=== PATIENT | female | born 1985 | race Caucasian/White ===

== ENCOUNTER → 2019-08-12 11:33 | Outpatient (CLI) | payer OTHER, MEDICAID, SELFPAY | PROVIDERS: Visit Provider Obstetrics & Gynecology | DX: N81.9 Female genital prolapse, unspecified (principal); R32 Unspecified urinary incontinence | CPT/HCPCS: 87086 ==

== ENCOUNTER → 2019-12-13 10:45 | Outpatient (CLI) | payer OTHER, MEDICAID, SELFPAY ==
[2019-12-14 09:18] LABS: COVID19 Sendout Not Detected (Not Detect)
== END ==
PROVIDERS: Visit Provider Physician Assistant
DX: Z01.812 Encounter for preprocedural laboratory examination (principal)
CPT/HCPCS: 87635

== ENCOUNTER 2019-12-16 06:40 | Day surgery (SDC) | payer OTHER, MEDICAID, SELFPAY ==
[2019-12-11 07:43] VITALS: BMI 43.4
[2019-12-16] VITALS (17 sets, daily range): BP systolic 103–131; BP diastolic 52–70; PULSE 64–80; RESP 12–22; TEMP 36.7–37.4; O2SAT 94–99; BMI 44.0
--- NOTE | 2019-12-16 | PATH_ITS ---
[facility] Accession Number: [id number] . 01 Material submitted: . uterus - UTERUS AND CERVIX . 02 Diagnosis: Uterus and Cervix, Hysterectomy: Proliferative endometrium with no diagnostic abnormality. Myometrium with no diagnostic abnormality. Cervix with nabothian cyst and no other diagnostic alteration. No evidence of neoplasm. [facility] 12/18/2019 1113 Local . 02 Electronically signed: . Javier Patterson MD, PhD, Pathologist NPI- [id number] . 01 Gross description: . Specimen A is received in formalin, labeled with patient identification and uterus and cervix. It consists of a 180-gram unoriented uterine corpus with a detached cervix. The uterine corpus is 4.5 cm from superior to inferior, 6.0 cm from cornu to cornu, and 5.4 cm from anterior to posterior. The serosa is pink to yellow-schrader and dull. Opening the specimen reveals pink to yellow-schrader smooth and glistening endometrium which is 0.1 cm in thickness. The pink-schrader and trabeculated myometrium is 2.1 cm in thickness. No discrete masses or lesions are identified. The cervical piece is 7.2 cm in length and 3.5 cm in diameter. The ectocervical mucosa is pink to yellow-schrader smooth dull and 4.0 x 3.4 cm. Opening the cervical piece reveals a uniloculated smooth lining cyst within the cervical wall measuring 0.6 x 0.5 x 0.5 cm. The endocervical mucosa is yellow-schrader and herringbone. Global [employer] Manager sections are submitted in seven cassettes. . Summary of sections: A1-A2 - employee relations representative sections of cervix, one piece each. A3 - employee relations representative sections of cervical cyst, one piece. A4-A7 - employee relations representative sections of endomyometrium, one piece in A4 and A6, two pieces in A5 and A7. ([id number]) /MRV 12/17/2019 1204 Local . 02 Pathologist provided ICD-10: N81.9 . 02 CPT . 333122 Performed at: 01 [facility] [address] [id number] MD Blaise Estrada MD Phone: [phone] Performed at: 02 [facility] [id number] [place], [place] [id number] MD Lashanda Louis MD Phone: [phone]
[2019-12-16] MEDS: LACTATED RINGERS 1,000 ML 100 ML IV ×2 (07:29→10:48)
[2019-12-16 07:37] LABS: Add Manual Diff / Slide Review NO; Basophils Absolute Auto 100 /uL (0-100); Basophils Percent Auto 1.1 % (0-2); Eosinophils Absolute Auto 300 /uL (0-450); Eosinophils Percent Auto 4.4 % (2-4); Hematocrit 35.3 % (36-46); Hemoglobin 11.6 g/dL (12.0-16.0); Lymphocytes Absolute Auto 2800 /uL (1100-4500); Lymphocytes Percent Auto 37.3 % (25-40); Mean Corpuscular HGB Conc 32.9 % (30-36); Mean Corpuscular Hemoglobin 30.5 PG (26-34); Mean Corpuscular Volume 92.8 fL (80-100); Monocytes Absolute Auto 700 /uL (0-900); Monocytes Percent Auto 8.9 % (3-14); Neutrophils Absolute Auto 3700 /uL (1500-7000); Neutrophils Percent Auto 48.3 % (50-75); Platelet Count 325 X10^3/uL (150-400); Red Cell Distribution Width 14.2 % (11.6-14.8); White Blood Cell Count 7.6 X10^3/uL (4.5-11.0)
[2019-12-16 07:44] LABS: BUN Creatinine Ratio 24.6 (6-22); Blood Urea Nitrogen 17 mg/dL (7-17); Calcium 9.4 mg/dL (8.4-10.2); Carbon Dioxide 28 mmol/L (22-32); Chloride 105 mmol/L (98-107); Estimated Glomerular Filt Rate > 60.0 mL/min (>60); Glucose 90 mg/dL (70-100); HEMOLYSIS < 15 (0-50); Potassium 4.3 mmol/L (3.4-5.1); Sodium 137 mmol/L (137-145)
[2019-12-16] MEDS: CEFAZOLIN 2 GM/100 ML FROZ.PIGGY IV (07:45)
--- NOTE | 2019-12-16 07:47 | PM.PREOP ---
Pre-operative Note COVID-19 COVID-19 status: Negative Result date/Date tested (Pos, Neg/Pending): 12/13/19 Interval Note History & Physical reviewed/Exam performed by Physician: Yes Changes to H&P: No
--- NOTE | 2019-12-16 08:30 | SUR.OPER ---
Lithotomy on padded OR bed, head on pillow, arms secured on padded arm boards at <90 degrees abduction. Legs secured in padded yellow fins stirrups.
[2019-12-16] MEDS: BUPIVACAINE 0.5% W/ EPI (PF) 30 ML VIAL INJ (08:38)
[2019-12-16] MEDS: BUPIVACAINE 0.5% W/ EPI (PF) 30 ML VIAL 10 ML INJ (08:40)
[2019-12-16] MEDS: ACETAMINOPHEN IV 1,000 MG/100 ML VIAL 400 MG IV (10:00)
--- NOTE | 2019-12-16 11:07 | P.OP_ITS ---
Operative Date/Time/Diagnoses Date of procedure: 12/16/19 Time of procedure: 11:07 Pre-op diagnosis: pelvic organ prolapse, stress urinary incontinence Post-op diagnosis: same Procedure & Clinicians Procedure: vaginal hysterectomy, anterior and posterior repair, transvaginal sling, sacrospinous ligament fixation Same procedure as scheduled: Yes Indications: uterine prolapse, cystocele, rectocele, stress urinary incontinence Surgeon: Rivka Turner Ear Nose Throat Physician: Kacie Calderon Anesthesia Type: General Operative Notes Findings: Normal vulva and vaginal. Moderate apical prolapse, moderate rectocele , mild cystocele. Visible 2cm simple cyst on ovary, visible at vaginal cuff. Closure Type: primary Specimen(s): other (uterus and cervix) Estimated Blood Loss (mL): 150 Procedure in detail: EBL 150ccs UOP N/A IVF 1000ccs LR After informed consent was obtained, the patient was taken to the operating room where general anesthesia was obtained without difficulty. She had voided just before transfer to the OR. She was prepped and draped in the usual sterile fashion, with sequential compression devices in place and running and s/p 2g Ancef. The cervix was grasped with a double toothed tenaculum on the anterior lip and a single toothed tenaculum on the posterior lip, and the vaginal mucosa infiltrated with 15ccs of 0.5%% marcaine with epinephrine. An incision was made circumferentially in the vaginal mucosa, with the vaginal mucosa dissected up and away from the cervix with both blunt and sharp dissection. The peritoneal reflection was visualized posteriorly and entry into the posterior cul de sac made sharply with curved elizabeth scissors, and a weighted speculum placed in the posterior cul de sac. The uterosacral ligaments were visualized and clamped and cauterized with the ligasure device bilaterally, using right angle retractors to retract the vaginal side wall and the bladder up and away from the device and the suction to remove smoke from the vagina. The anterior vaginal mucosa was dissected further from the cervix and an anterior colpotomy made with sharp di ssection, and a right angle inserted for further retraction and protection of the bladder. The tenaculae were used to maintain downward traction on the cervix. The Ligasure device was used to clamp, cauterize, and divide the cardinal and broad ligaments and the uterine arteries bilaterally, with a moist lap inserted past the uterine fundus when feasible to further pack bowel out of the pelvis. The ligasure device was used to clamp, cauterize, and divide the utero-ovarian ligaments bilaterally. The uterine fundus was bulky with several small fibroids and a texture consistent with adenomyosis, and was morcellated with the scalpel to improve visualization for the last bite on either side. The patient has a history of tubal ligation but had sizable fallopian tube remnants, which were clamped with yodit clamps, cut with curved elizabeth scissors, and suture ligated with 0 vicryl. The uterine fundus was removed without issue. The fallopian tube pedicles were closely inspected and found to be hemostatic. The vaginal cuff was closely inspected and found to be hemostatic. The uterine artery pedicles were inspected and hemostasis was acheived with a figure of 8 suture on the patient's right. The vaginal cuff was closed vertically with 0 vicryl in a running, locked fashion. Attention was then turned to the anterior vaginal wall, where a mild cystocele was noted. 10ccs of a dilute solution of 0.5% bupivicaine with epinephrine was injected into the vaginal mucosa, and a 2.5cm area over the cystocele extending to the mid urethra was grasped at either end with Allis clamps and a midline, vertical incision made with a scalpel. The vaginal mucosa was dissected away from the cystocele with a combination of blunt and sharp dissection, and dissection extended to the pubic bone bilaterally to facilitate the transvaginal sling. Suprapubic exit sites were marked with a sterile marker. The needles attached to the sling were placed on either side of the urethra from the bottom up, and the needles left in place while a cystoscopy was performed. Serial inspections of the 70 and 0 degree scopes were made to inspect the entire bladder and urethra, with no bladder injury noted. Clear ureteral efflux was noted bilaterally, and the cystoscope removed. The sling was brought to sit loosely under the urethra, and the plastic sheath removed. The graft was trimmed to below the level of the skin at the suprapubic sites. Minimal repair of the anterior repair was noted, and the fascia was plicated in the areas necessary during repair of the vaginal mucosa in a running, locked fashion with 2-0 angelica ryl. Attention was then turned to the posterior vaginal wall, where 20ccs of dilute 0.5% bupivicaine with epinephrine was injected into the vaginal mucosa to facilitate hydrodilation. A 4cm area over the rectocele was grasped with Allis clamps and a vertical incision made in the midline with a scalpel. A small wedge-shaped area of tissue was removed from the posterior vaginal opening at the same time. The vaginal mucosa was dissected away from the rectocele with blunt dissection. Dissection was extended on the right to allow palpation of the sacrospinous ligament, and Prolene suture with the Capio passer was placed through the sacrospinous ligament on the right side and sutured to the underside of the vaginal mucosa near the apex. 0 vicryl was used to plicate the rectovaginal fascia in an interrupted fashion. The sacrospinous ligament suture was tied down. At the end of this repair, during manipulation of the tissue to begin closure of the posterior vaginal mucosa, the sacrospinous ligament fixation was felt to tear through, and second prolene suture was placed through the sacrospinous ligament with the Capio passer and attached to the underside of the posterior vaginal mucosa near the apex, after removal of two of the interrupted 0 vicryl sutures. These sutures were then replaced, and the vaginal mucosa closed with 2-0 vicryl in a running, locked fashion. 0 vicryl was used to build up the perineal body, and 2-0 vicryl used to close the skin over the perineal body. A rectal exam was performed to confirm that no sutures were placed through the rectal mucosa. A kim catheter and vaginal packing were placed, to be left in place overnight, and steri strips placed over the suprapubic TVT insertion sites. The patient tolerated the procedure well, and was taken to the PACU in stable condition. Sponge and needle counts were correct x2. Complications: none Post-operative Condition: stable Disposition: PACU Plan for aftercare: Vaginal packing and kim catheter in place.
[2019-12-16] MEDS: HYDROMORPHONE 2 MG INJ IV ×3 (11:32→11:46)
[2019-12-16] MEDS: OXYCODONE IR 5 MG TABLET PO ×3 (11:44→16:48)
--- NOTE | 2019-12-16 12:45 | SUR.PHASEI ---
Pt to transfer to room 223 via bed with all belongings. Vital signs stable and pain controlled with medications; see flowsheet documentation for details. Report given to ZEB Young prior to transfer. Hannah at bedside upon arrival to room 223; handoff assessment completed. Hannah to assume care of pt at this time.
[2019-12-16] MEDS: HYDROMORPHONE 0.5 MG INJ IV (13:24)
--- NOTE | 2019-12-16 13:55 | PC.NURSE ---
received pt to room 223 post op- she is alert/oriented and understanding of care provided and instructions given- she remains saline locked and has calf bilat scd's in place- steristrips to outer mons pubis and tom pad to vag area with small amount bloody drainage ( no need to change at this time) taking small amounts of po and rating pain 3-6 /10 as it comes in waves per pt- medicated with 0.5mg iv dilaudid as well as given snack - pt also stood and walked to window without difficulty - room air and all vss- pale clear urine per kim catheter
--- NOTE | 2019-12-16 16:28 | P.PN_ITS ---
Subjective Subjective Date Patient Seen: 12/16/19 Time Patient Seen: 16:28 Interval history: Patient reports feeling well, tolerating PO, good pain control, ambulated to chair, no dizzness, chest pain, palpitations. Exam Vital Signs (past 8 hours): - 12/16/19 10:57 12/16/19 11:02 12/16/19 11:07 Temperature 99.3 F Pulse Rate 70 78 77 Respiratory Rate 12 15 20 Blood Pressure 118/69 114/62 115/60 Pulse Oximetry 95 94 95 12/16/19 11:12 12/16/19 11:27 12/16/19 11:42 Temperature Pulse Rate 75 74 69 Respiratory Rate 22 13 12 Blood Pressure 108/58 L 111/56 L 103/53 L Pulse Oximetry 95 98 99 12/16/19 11:57 12/16/19 12:12 12/16/19 12:27 Temperature Pulse Rate 65 66 67 Respiratory Rate 13 12 17 Blood Pressure 110/56 L 106/54 L 109/54 L Pulse Oximetry 98 97 96 12/16/19 12:34 12/16/19 12:40 12/16/19 13:10 Temperature 98.5 F 98.3 F 98.3 F Pulse Rate 68 80 64 Respiratory Rate 20 16 16 Blood Pressure 106/54 L 131/70 111/60 Pulse Oximetry 99 98 97 12/16/19 13:56 12/16/19 14:40 12/16/19 15:40 Temperature 98.0 F 98.0 F 99.3 F Pulse Rate 65 66 74 Respiratory Rate 16 16 17 Blood Pressure 109/52 L 104/53 L 110/67 Pulse Oximetry 97 97 96 Oxygen Delivery Method Room Air Oxygen Flow Rate 0 Const General: cooperative, healthy appearing, comfortable and other (Sitting up in b ed, drinking water. SCDs in place.) Objective Labs Result Diagrams: 12/16/19 07:15 12/16/19 07:15 Labs: Laboratory Results - last 24 hr 12/16/19 12/16/19 12/16/19 07:15 07:15 07:15 WBC 7.6 RBC 3.80 L Hgb 11.6 L Hct 35.3 L MCV 92.8 MCH 30.5 MCHC 32.9 RDW 14.2 Plt Count 325 Neut % (Auto) 48.3 L Lymph % (Auto) 37.3 [place] % (Auto) 8.9 Eos % (Auto) 4.4 H Baso % (Auto) 1.1 Neut # (Auto) 3700 Lymph # (Auto) 2800 [place] # (Auto) 700 Eos # (Auto) 300 Baso # (Auto) 100 Sodium 137 Potassium 4.3 Chloride 105 Carbon Dioxide 28 BUN 17 Creatinine 0.69 Estimated GFR > 60.0 BUN/Creatinine Ratio 24.6 H Glucose 90 Calcium 9.4 Blood Type A Negative Antibody Screen Negative Assessment & Plan Post-op Postoperative Procedures: Procedures Operation Date: 12/16/19 07:45 Actual Procedures Side Surgeon p Vaginal Hysterectomy Rivka Turner MD s Anterior/Posterior Colporrhaphy w/ tvt and ligament fixation Rivka Turner MD Postoperative day: 0 Postoperative status: doing well Postoperative status narrative: Patient with occasional hypotension but otherwise normal vitals, PO hydrating well, otherwise meeting postop goals. Continue to closely monitor. - AM CBC - PO tylenol, motrin q6, alternating (one or the other q3) with PRN oxycodone - Encourage PO hydration - SCDs while sedentary Postoperative plan: routine post-op care Time Spent With Patient Time with patient: less than 15 minutes Quality VTE Deep Vein Thrombosis/Pulmonary Embolism Present on Admission: No
[2019-12-16] MEDS: ACETAMINOPHEN 325 MG TABLET 650 MG PO (18:07)
[2019-12-16] MEDS: diphenhydrAMINE 25 MG TABLET PO (19:41)
[2019-12-16] MEDS: OXYCODONE IR 10 MG TABLET PO ×2 (19:41→23:50)
[2019-12-16] MEDS: IBUPROFEN 400 MG TABLET PO (21:43)
[2019-12-17 00:05] VITALS: BP 115/53; PULSE 68; RESP 16; TEMP 36.6; O2SAT 96
[2019-12-17] MEDS: IBUPROFEN 400 MG TABLET PO ×2 (03:26→14:00)
[2019-12-17] MEDS: OXYCODONE IR 10 MG TABLET PO ×4 (04:37→14:51)
[2019-12-17 05:07] LABS: Add Manual Diff / Slide Review NO; Basophils Absolute Auto 100 /uL (0-100); Basophils Percent Auto 0.3 % (0-2); Eosinophils Absolute Auto 0 /uL (0-450); Eosinophils Percent Auto 0.1 % (2-4); Hematocrit 30.1 % (36-46); Lymphocytes Absolute Auto 3300 /uL (1100-4500); Lymphocytes Percent Auto 19.6 % (25-40); Mean Corpuscular HGB Conc 33.2 % (30-36); Mean Corpuscular Hemoglobin 30.7 PG (26-34); Mean Corpuscular Volume 92.4 fL (80-100); Monocytes Absolute Auto 1200 /uL (0-900); Monocytes Percent Auto 7.2 % (3-14); Neutrophils Absolute Auto 12200 /uL (1500-7000); Neutrophils Percent Auto 72.8 % (50-75); Platelet Count 301 X10^3/uL (150-400); Red Blood Cell Count 3.25 X10^6/uL (4.0-5.2); White Blood Cell Count 16.7 X10^3/uL (4.5-11.0)
[2019-12-17 05:13] VITALS: BP 117/66; PULSE 61; RESP 16; TEMP 36.6; O2SAT 98
--- NOTE | 2019-12-17 05:59 | PC.NURSE ---
C/O chest pain rated pain level @ 3/10 to her right chest that radiates to her right shoulder. RT. notified for a stat ECG & Dr. Oliveira notified & call back ordered ECG & Troponin stat. To call her back with the results. Will cont. to monitor.
[2019-12-17 06:05] VITALS: BP 118/68; PULSE 70; O2SAT 97
--- NOTE | 2019-12-17 06:08 | PC.NURSE ---
Also reported her VS B/P 118/68, HR 70, SPO2 97 no C/O dyspnea & nausea. Will monitor.
--- NOTE | 2019-12-17 06:49 | PC.NURSE ---
Re-assessed pt's. CP still @ 3-4/10 pain scale reported sharp pain. ECG done coordinator Santa Mckeon RN . compared her ECG report form her old ECG states there's no changed in her ECG. Awaiting Troponin results to report back to Dr. Oliveira. Denies dyspnea & nausea, will cont. to monitor.
[2019-12-17 07:06] LABS: Troponin I < 0.012 ng/mL (0.01-0.034)
[2019-12-17 07:31] VITALS: BP 116/62; PULSE 64; RESP 15; TEMP 36.8; O2SAT 97
--- NOTE | 2019-12-17 08:46 | P.PN_ITS ---
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 The patient reports that it improved with passage of gas. She reports vaginal pressure and discomfort that resolved significantly and immediately on removal of the vaginal packing and kim catheter. She ambulated overnight and had SCDs in place when sedentary, tolerated PO, has good pain control, and has passed flatus. Exam Vital Signs (past 8 hours): - 12/17/19 05:13 12/17/19 06:05 12/17/19 07:31 Temperature 97.8 F 98.3 F Pulse Rate 61 70 64 Respiratory Rate 16 15 Blood Pressure 117/66 118/68 116/62 Pulse Oximetry 98 97 97 Oxygen Delivery Method Room Air Oxygen Flow Rate 0 Const General: cooperative, healthy appearing and comfortable Other: Patient sitting upright in bed, just finished breakfast. Resp Effort & Inspection: normal respiratory effort Auscultation: clear to auscultation bilaterally Cardio Rate: regular rate Rhythm: regular rhythm GI Palpation: soft and No tender External Female Exam: normal external appearance Other: Packing removed, moderately saturated with old blood but no active bleeding. Kim removed without issue. Skin General: no rashes or lesions noted Objective Labs Result Diagrams: 12/17/19 04:58 12/16/19 07:15 Labs: Laboratory Results - last 24 hr 12/17/19 12/17/19 04:58 06:30 WBC 16.7 H D RBC 3.25 L Hgb 10.0 L Hct 30.1 L MCV 92.4 MCH 30.7 MCHC 33.2 RDW 14.0 Plt Count 301 Neut % (Auto) 72.8 D Lymph % (Auto) 19.6 L [place] % (Auto) 7.2 Eos % (Auto) 0.1 L Baso % (Auto) 0.3 Neut # (Auto) 39419 H Lymph # (Auto) 3300 [place] # (Auto) 1200 H Eos # (Auto) 0 Baso # (Auto) 100 Troponin I < 0.012 Assessment & Plan Post-op Postoperative Procedures: Procedures Operation Date: 12/16/19 07:45 Actual Procedures Side Surgeon p Vaginal Hysterectomy Rivka Turner MD s Anterior/Posterior Colporrhaphy w/ tvt and ligament fixation Rivka Turner MD Postoperative day: 1 Postoperative status: doing well and anemia Postoperative status narrative: This patient is doing well this AM, with resolved chest pain s/p negative troponin and EKG. She is meeting postoperative goals as expected, and her postoperative anemia appears stable with normal vitals and is not unexpected given the procedure she underwent. She looks well this AM, and is for voiding trial with measured first void and post void residual. Anticipate DC later today. Postoperative plan: routine post-op care, ambulate, advance diet, voiding trials and discharge Quality VTE Deep Vein Thrombosis/Pulmonary Embolism Present on Admission: No
--- NOTE | 2019-12-17 09:17 | CM.DANOTE ---
DCP: Case received, EMR reviewed and met with patient. Introduced self and role. Was able to obtain some information from patient regarding her baseline activity level and living situation prior to surgery. DCP assessment completed with information currently available. Patient is a 33 year old female who admitted yesterday morning to the care of OB physician. Payer: confirmed: [facility] of [place]/Medicaid. Patient came to the hospital for a surgical procedure. She had a vaginal hysterectomy. Patient has history of uterine prolapse.cystocele. Met briefly with patient. She is alert and oriented, ambulating independently. 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 She resides in [place] with her spouse, Kee. P: DCP to continue to follow. Patient should be able to go home when medically stable. Linda Hoover RN/Demolition Worker
[2019-12-17] MEDS: ACETAMINOPHEN 325 MG TABLET 650 MG PO (09:33)
[2019-12-17] MEDS: DOCUSATE 100 MG CAPSULE PO (09:33)
--- NOTE | 2019-12-17 10:19 | PC.NURSE ---
Addendum entered by Nina Haley R.N. 12/17/19 14:28: reviewed d/c plan and scheduled post op visit and medicated prior to leaving- awaiting her to pickling grader- Original Note: PT C/O INCISIONAL PAIN-RADIATING UP TO BILAT SHOULDER-AREA, CARDIAC RULED OUT POST EKG/TROPONIN - AND PT HERSELF FELT IT WAS GAS. ABBOTT & PACKING REMOVED BY DR GUTIERREZ THIS AM AND SINCE THEN PT'S PAIN LEVEL HAS DECREASED AND SHE'S SHOWERED AND AMBULATED SEVERAL LAPS IN HOSPITAL HALLWAYS- VOIDED PINK TINGED URINE AND THEN MEASURED PVR- WHICH WAS ZERO MLS OF RETAINED URINE- RESTING COMFORTABLY AT PRESENT- IV ACCESS ALSO REMOVED- HOPING FOR DISCHARGE LATER THIS DATE
--- NOTE | 2019-12-17 12:29 | PM.DS.1 ---
History of Present Illness History of Present Illness Date Patient Seen: 12/17/19 Time Patient Seen: 13:13 Chief complaint: [id number] PELVIC *OPB* Narrative: This patient was admitted for scheduled vaginal hysterectomy with anterior and posterior repair, TVT, and sacrospinous ligament fixation. The procedure was uncomplicated, and she was discharged on POD#1 after passing voiding trials and meeting postoperative goals. Discharge Providers Provider Discharge Date: 12/17/19 Consults: 12/16/19 12:46 Consult to Discharge Planning Routine Comment: Discharge provider: Rivka Turner MD Summary Hospital Course Discharge Diagnosis: Pelvic organ prolapse Hospital Course: See HPI Status at Discharge Cognitive/behavioral status at discharge: oriented Functional status at discharge: independent ambulation Overall status at discharge: patient is progressing back to baseline Time Spent with Patient Time spent: Greater than 30 minutes Exam Vital Signs (past 8 hours): - 12/17/19 05:13 12/17/19 06:05 12/17/19 07:31 Temperature 97.8 F 98.3 F Pulse Rate 61 70 64 Respiratory Rate 16 15 Blood Pressure 117/66 118/68 116/62 Pulse Oximetry 98 97 97 Oxygen Delivery Method Room Air Oxygen Flow Rate 0 Const General: cooperative, healthy appearing and comfortable Objective Labs Result Diagrams: 12/17/19 04:58 12/16/19 07:15 Labs: Laboratory Results - last 24 hr 12/17/19 12/17/19 04:58 06:30 WBC 16.7 H D RBC 3.25 L Hgb 10.0 L Hct 30.1 L MCV 92.4 MCH 30.7 MCHC 33.2 RDW 14.0 Plt Count 301 Neut % (Auto) 72.8 D Lymph % (Auto) 19.6 L [place] % (Auto) 7.2 Eos % (Auto) 0.1 L Baso % (Auto) 0.3 Neut # (Auto) 85755 H Lymph # (Auto) 3300 [place] # (Auto) 1200 H Eos # (Auto) 0 Baso # (Auto) 100 Troponin I < 0.012 Discharge Plan Discharge Plan Patient Disposition: Home Discharge Med Rec/Prescriptions Prescriptions: Continued Humira Pen 40 mg/0.8 mL Pen Injector Kit 40 mg SUBCUT Q2W RF: 0 Follow up/Referrals: Rivka Turner MD [Physician] - 2 Weeks (1-2 weeks for postop check for vaginal hysterectomy. Please call Dr. Silvestre's office to schedule/confirm your follow up appointment.) Discharge Orders: Discharge (Order); Ordered 12/17/19 Ordered By: Rivka Turner Provider Discharge Instructions Diet: Regular Activity: Nothing in the vagina for 8 weeks. Avoid lifting more than 10 lbs for 8 weeks. If you have increasing bleeding, pain, fevers, chills, discharge, nausea, vomiting, inability to urinate, chest pain or trouble breathing, or any other symptoms, call or come to the ED. Skin/Wound/Dressing Care Report to your healthcare provider any signs of infection, such as:: chills, fever, night sweats, increased pain, unusual drainage and unusual redness Visit Report/Discharge Packet Instructions: Urinary Incontinence Surgery -- Sling Procedures, DI for Hysterectomy Stand Alone Forms: Surgery Discharge Discharge Data Attending Provider: Rivka Turner Discharges patient from system. Discharge Date/Time: 12/17/19 14:55 Quality VTE Deep Vein Thrombosis/Pulmonary Embolism Present on Admission: No
== END 2019-12-17 14:55 | disposition home or self-care (01) ==
LOC: OR 06:43 → AC 06:44
PROVIDERS: Family Medicine; Referring Provider Obstetrics & Gynecology; Visit Provider Obstetrics & Gynecology
PROC: (CPT 58260; principal; 2019-12-16 07:45)
PROC: (CPT 58260; 2019-12-16 07:45)
DX: N81.2 Incomplete uterovaginal prolapse (principal); N81.6 Rectocele; N39.3 Stress incontinence (female) (male); Z95.0 Presence of cardiac pacemaker; N88.8 Other specified noninflammatory disorders of cervix uteri
CPT/HCPCS: 58260; 57260; 57288; 36415; 80048; 84484; 85025; 86850; 86900; 86901; 93005; 93010; C1771; J0131; J0690; J1100; J1170; J2405; J2704; J3010

== ENCOUNTER → 2019-12-23 14:57 | Outpatient (CLI) | payer OTHER, MEDICAID, SELFPAY ==
[2019-12-16 12:54] VITALS: BMI 44.0
[2019-12-23 19:49] LABS: Appearance Urine UA SL CLOUDY; Bilirubin Urine UA NEGATIVE (NEGATIVE); Color Urine UA YELLOW; Glucose Urine UA NEGATIVE (Negative); Ketones Urine UA NEGATIVE (NEGATIVE); Leukocyte Esterase Urine UA 3+ (NEGATIVE); Nitrite Urine UA NEGATIVE (Negative); Occult Blood Urine UA 3+ (Negative); Protein Urine UA NEGATIVE (Negative); Urobilinogen Urine UA 0.2 E.U./dL (0.2)
[2019-12-23 19:52] LABS: pH Urine UA 6.5 (4.5-8.0)
[2019-12-23 20:19] LABS: RBC Urine 10-30/HPF (0-5/HPF); Squamous Epithelial Cell Urine 1-5 /HPF (0-5/HPF); WBC Urine 10-30/HPF (0-5/HPF)
[2019-12-23 20:20] LABS: Amorphous Sediment Urine 1+; Bacteria Urine Moderate (10-30); Culture Indicated Urine Specimen Cultured; Mucus Urine 2+ (Negative)
== END ==
PROVIDERS: Visit Provider Obstetrics & Gynecology
DX: R39.198 Other difficulties with micturition (principal)
CPT/HCPCS: 81001; 87086

== ENCOUNTER 2021-03-22 21:44 | Emergency (ER) | payer OTHER, MEDICAID, SELFPAY ==
[2019-12-16 12:54] VITALS: BMI 44.0
[2021-03-22] VITALS (9 sets, daily range): BP systolic 116–165; BP diastolic 56–96; PULSE 60–81; RESP 16–28; TEMP 36.4; O2SAT 97–100
--- NOTE | 2021-03-22 21:57 | DI.RAD.S_ITS ---
PROCEDURE: XR CHEST 1V INDICATIONS: chest pain TECHNIQUE: One view of the chest was acquired. COMPARISON: [facility], [place], XR CHEST 1VW (PORTABLE), 01/30/2016, 12:46. FINDINGS: Surgical changes and devices: A cardiac pacemaker is seen with pulse generator in the right chest. Lungs and pleura: Lungs are clear. Blunting of the left costophrenic angle is stable when compared to the remote prior exam from 2016, most likely secondary to chronic scarring or pleural thickening. No pleural effusions or pneumothorax. Mediastinum: Dextrocardia is noted, stable when compared to the prior exam. A left-sided aortic arch is seen. Heart size is stable. Bones and chest wall: No suspicious bony lesions. Overlying soft tissues appear unremarkable. IMPRESSION: No acute cardiopulmonary abnormality. Dictated by: Amauri Del Cid M.D. on 03/22/2021 at 22:24 Approved by: Amauri Del Cid M.D. on 03/22/2021 at 22:28
[2021-03-22 22:11] LABS: Add Manual Diff / Slide Review NO; Basophils Absolute Auto 100 /uL (0-100); Eosinophils Absolute Auto 100 /uL (0-450); Eosinophils Percent Auto 0.9 % (2-4); Hematocrit 37.7 % (36-46); Hemoglobin 12.5 g/dL (12.0-16.0); Lymphocytes Absolute Auto 2600 /uL (1100-4500); Mean Corpuscular HGB Conc 33.2 % (30-36); Mean Corpuscular Hemoglobin 30.9 PG (26-34); Mean Corpuscular Volume 93.3 fL (80-100); Monocytes Absolute Auto 700 /uL (0-900); Monocytes Percent Auto 8.9 % (3-14); Neutrophils Absolute Auto 4900 /uL (1500-7000); Neutrophils Percent Auto 58.2 % (50-75); Platelet Count 436 X10^3/uL (150-400); Red Blood Cell Count 4.04 X10^6/uL (4.0-5.2); Red Cell Distribution Width 14.3 % (11.6-14.8); White Blood Cell Count 8.4 X10^3/uL (4.5-11.0)
[2021-03-22 22:26] LABS: Alanine Aminotransferase 32 IU/L (<35); Albumin 4.8 g/dL (3.5-5.0); Albumin Globulin Ratio 1.3 (1.0-2.8); Alkaline Phosphatase 63 U/L (38-126); Aspartate Aminotransferase 36 IU/L (14-36); BUN Creatinine Ratio 14.8 (6-22); Bilirubin Total 0.5 mg/dL (0.2-1.3); Blood Urea Nitrogen 12 mg/dL (7-17); Calcium 9.9 mg/dL (8.4-10.2); Carbon Dioxide 29 mmol/L (22-32); Chloride 106 mmol/L (98-107); Creatine Kinase 75 U/L (30-135); Estimated Glomerular Filt Rate > 60.0 mL/min (>60); Globulin 3.7 g/dL (1.7-4.1); Glucose 94 mg/dL (70-100); HEMOLYSIS < 15 (0-50); Lipase 56 U/L (23-300); Potassium 4.3 mmol/L (3.4-5.1); Sodium 143 mmol/L (137-145); Total Protein 8.5 g/dL (6.3-8.2)
--- NOTE | 2021-03-22 22:31 | ED_ITS ---
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 this evening while she was at work. Her work is fairly active. She describes it as an achy pain to the center of her chest not associated with fever, cough, palpitations or dyspnea. She notes no recent exertional dyspnea or palpitations. She has had episodes of chest pain previously and at that time was found to be in a supraventricular tachycardia. She describes no significant anxiety but has a somewhat anxious overall demeanor. Related Data Home Medications Medication Instructions Recorded Confirmed metoprolol succinate 50 mg 50 mg PO DAILY 03/22/21 03/22/21 tablet,extended release 24 hr Allergies Allergy/AdvReac Type Severity Reaction Status Date / Time Benzodiazepines Allergy Unknown Verified 10/09/20 16:07 [BENZODIAZEPINES] Review of Systems Review of Systems Narrative: Remainder of complete review of systems is otherwise unremarkable except for that included in the HPI. Patient History Medical History (Updated 03/23/21 @ 02:08 by Nilda Shay MD) Anemia Bipolar disorder Cardiac arrhythmia Carpal tunnel syndrome (~2011) Dextrocardia Near syncope Psoriasis (~2004) SVT (supraventricular tachycardia) Surgical History Anesthesia History of appendectomy (~2014) History of cholecystectomy (~2011) History of tubal ligation (~2014) Pacemaker (~2014) Vaginal delivery Family History Brother Mental health problem Social History household members: spouse and children Smoking Status: Former smoker alcohol intake: current Smoking Status: Former smoker alcohol intake frequency: a few times a week Substance Use Type: does not use Exam Narrative Exam Narrative: General: Healthy appearing, in no acute distress. Able to give a complete and coherent history. Well-nourished well-developed HEENT: Moist mucous membranes, normal sclera with reactive pupils, Neck: No JVD, supple Respiratory: Lungs are clear to auscultation, no wheezing no rales no rhonchi. Full and symmetrical air movement Cardiac: Regular rate and rhythm (heart is in the right side of the chest) no murmurs no bruits Abdomen: Soft, nontender, good bowel tones, no flank pain Skin: Warm and dry, no rashes Neurologic: Grossly neurologically intact with no obvious asymmetries or abnormalities Extremities: No trauma, well perfused Psych: Cooperative, anxious, distractible but otherwise appropriate insight and affect Initial Vital Signs Initial Vital Signs: Vital Signs Temperature 97.6 F 03/22/21 21:49 Pulse Rate 81 03/22/21 21:49 Respiratory Rate 24 03/22/21 21:49 Blood Pressure 159/80 H 03/22/21 21:49 Pulse Oximetry 100 03/22/21 21:49 Course Orders Ordered: ED Orders 03/22/21 21:55 COVID19 - ADMIT (INVENTORY COORDINATOR swab/PCR) Stat Complete Blood Count AUTO DIFF Stat Comprehensive Metabolic Panel Stat Lipase Stat Troponin & CK Cardiac Panel Stat 03/22/21 21:57 XR chest 1V Stat EKG-12 Lead Stat 03/22/21 22:00 D Dimer Stat 03/22/21 23:20 CT angio chest abdomen pelvis Stat 03/23/21 00:51 Troponin I Stat Morphine Sulfate (Morphine 2 Mg/Ml Inj) 2 mg IV Q2HR PRN PRN Reason: Pain, Moderate (4-6) Last Admin: 03/22/21 23:06 Dose: 2 mg Documented by: LYNETTE Nitroglycerin (Nitroglycerin 0.4 Mg Sl Tab) 0.4 mg SL [id number] PRN PRN Reason: Chest Pain Last Admin: 03/22/21 22:45 Dose: 0.4 mg Documented by: Admin: 03/22/21 22:39 Dose: 0.4 mg Documented by: VALENCIA Discontinued Medications Aspirin (Aspirin 81 Mg Chew Tab) 324 mg PO NOW ONE Stop: 03/22/21 22:31 Last Admin: 03/22/21 22:39 Dose: 324 mg Documented by: VALENCIA Sodium Chloride (Normal Saline 0.9%) 1,000 mls @ 1,000 mls/hr IV BOLUS ONE Stop: 03/22/21 23:55 Last Infusion: 03/23/21 00:12 Dose: 0 mls/hr Documented by: Admin: 03/22/21 23:07 Dose: 1,000 mls/hr Documented by: LYNETTE Ketorolac Tromethamine (Ketorolac 30 Mg/Ml Vial) 15 mg IV NOW ONE Stop: 03/23/21 00:44 Last Admin: 03/23/21 00:47 Dose: 15 mg Documented by: LYNETTE Lorazepam (Lorazepam 2 Mg/Ml Inj) 1 mg IV NOW ONE Stop: 03/23/21 00:38 Last Admin: 03/23/21 00:42 Dose: 1 mg Documented by: LYNETTE Vital Signs Vital signs: Vital Signs - 8 hr 03/22/21 21:49 03/22/21 21:57 03/22/21 21:58 Temperature 97.6 F Pulse Rate 81 77 72 Respiratory Rate 24 28 H Blood Pressure 159/80 H 159/96 H Pulse Oximetry 100 99 99 03/22/21 22:00 03/22/21 22:30 03/22/21 22:39 Temperature Pulse Rate 74 67 Respiratory Rate 27 H Blood Pressure 165/81 H 152/74 H 152/74 H Pulse Oximetry 98 100 03/22/21 22:44 03/22/21 23:00 03/22/21 23:46 Temperature Pulse Rate 69 60 60 Respiratory Rate 27 H 16 26 H Blood Pressure 136/64 116/56 L Pulse Oximetry 98 97 100 03/23/21 00:00 03/23/21 00:17 03/23/21 00:30 Temperature Pulse Rate 60 59 L 84 Respiratory Rate 22 16 Blood Pressure 116/61 133/78 Pulse Oximetry 100 100 99 MDM - Chest Pain Lab Data Result diagrams: 03/22/21 21:55 03/22/21 21:55 Labs: Lab Results 03/22/21 03/22/21 03/22/21 Range/Units 21:55 21:55 21:55 WBC 8.4 (4.5-11.0) X10^3/uL RBC 4.04 (4.0-5.2) X10^6/uL Hgb 12.5 (12.0-16.0) g/dL Hct 37.7 (36-46) % MCV 93.3 (80-100) fL MCH 30.9 (26-34) PG MCHC 33.2 (30-36) % RDW 14.3 (11.6-14.8) % Plt Count 436 H (150-400) X10^3/uL Neut % (Auto) 58.2 (50-75) % Lymph % (Auto) 31.0 (25-40) % [place] % (Auto) 8.9 (3-14) % Eos % (Auto) 0.9 L (2-4) % Baso % (Auto) 1.0 (0-2) % Neut # (Auto) 4900 (2987-0895) /uL Lymph # (Auto) 2600 (8891-0601) /uL [place] # (Auto) 700 (0-900) /uL Eos # (Auto) 100 (0-450) /uL Baso # (Auto) 100 (0-100) /uL D-Dimer (<230) ng/mL Sodium 143 (137-145) mmol/L Potassium 4.3 (3.4-5.1) mmol/L Chloride 106 (98-107) mmol/L Carbon Dioxide 29 (22-32) mmol/L BUN 12 (7-17) mg/dL Creatinine 0.81 (0.52-1.04) mg/dL Estimated GFR > 60.0 (>60) mL/min BUN/Creatinine Ratio 14.8 (6-22) Glucose 94 (70-100) mg/dL Calcium 9.9 (8.4-10.2) mg/dL Total Bilirubin 0.5 (0.2-1.3) mg/dL AST 36 (14-36) IU/L ALT 32 (<35) IU/L Alkaline Phosphatase 63 (38-126) U/L Total Creatine Kinase 75 (30-135) U/L CK-MB (CK-2) TNP CK-MB (CK-2) Rel Index TNP Troponin I < 0.012 (0.01-0.034) ng/mL Total Protein 8.5 H (6.3-8.2) g/dL Albumin 4.8 (3.5-5.0) g/dL Globulin 3.7 (1.7-4.1) g/dL Albumin/Globulin Ratio 1.3 (1.0-2.8) Lipase 56 (23-300) U/L SARS-CoV-2 (PCR) Negative (Negative) 03/22/21 03/23/21 Range/Units 22:00 00:51 WBC (4.5-11.0) X10^3/uL RBC (4.0-5.2) X10^6/uL Hgb (12.0-16.0) g/dL Hct (36-46) % MCV (80-100) fL MCH (26-34) PG MCHC (30-36) % RDW (11.6-14.8) % Plt Count (150-400) X10^3/uL Neut % (Auto) (50-75) % Lymph % (Auto) (25-40) % [place] % (Auto) (3-14) % Eos % (Auto) (2-4) % Baso % (Auto) (0-2) % Neut # (Auto) (3222-1553) /uL Lymph # (Auto) (2705-9779) /uL [place] # (Auto) (0-900) /uL Eos # (Auto) (0-450) /uL Baso # (Auto) (0-100) /uL D-Dimer 347 H (<230) ng/mL Sodium (137-145) mmol/L Potassium (3.4-5.1) mmol/L Chloride (98-107) mmol/L Carbon Dioxide (22-32) mmol/L BUN (7-17) mg/dL Creatinine (0.52-1.04) mg/dL Estimated GFR (>60) mL/min BUN/Creatinine Ratio (6-22) Glucose (70-100) mg/dL Calcium (8.4-10.2) mg/dL Total Bilirubin (0.2-1.3) mg/dL AST (14-36) IU/L ALT (<35) IU/L Alkaline Phosphatase (38-126) U/L Total Creatine Kinase (30-135) U/L CK-MB (CK-2) CK-MB (CK-2) Rel Index Troponin I < 0.012 (0.01-0.034) ng/mL Total Protein (6.3-8.2) g/dL Albumin (3.5-5.0) g/dL Globulin (1.7-4.1) g/dL Albumin/Globulin Ratio (1.0-2.8) Lipase (23-300) U/L SARS-CoV-2 (PCR) (Negative) Point of Care Testing Test Results Negative Urine Dip Bedside Urine Glucose Negative Bedside Urine Bilirubin - Negative Bedside Urine Ketone - Negative Urine Specific [place] 1.030 Bedside Urine Occult Blood - Negative Bedside Urine pH 6.0 Bedside Urine Protein - Negative Bedside Urine Urobilinogen - Negative Bedside Urine Nitrite - Negative Bedside Urine Leukocytes - Negative Esterase Imaging Data Chest x-ray: Radiologist's Impression: FINDINGS:? ? Surgical changes and devices:? A cardiac pacemaker is seen with pulse generator in the right chest. ? Lungs and pleura:? Lungs are clear.? Blunting of the left costophrenic angle is stable when compared to the remote prior exam from 2016, most likely secondary to chronic scarring or pleural thickening.? No pleural effusions or pneumothorax.? ? Mediastinum:? Dextrocardia is noted, stable when compared to the prior exam.? A left-sided aortic arch is seen.? Heart size is stable. ? Bones and chest wall:? No suspicious bony lesions.? Overlying soft tissues appear unremarkable.? ? IMPRESSION:? No acute cardiopulmonary abnormality. ? ? Dictated by: Amauri Del Cid M.D. on 03/22/2021 at 22:24? ?? CT chest abd pelvis: Radiologist's Impression: FINDINGS:? Image quality:? Excellent.? ? VASCULATURE:? The heart is located in the right chest with ventricular apex directed right anterolaterally.? However, the relationship of the right and left atria and ventricles and the pulmonary outflow tracts demonstrate normal relationships, with the systemic blood supply returning to the right atrium and the pulmonary veins draining to the left atrium.? The pulmonary trunk arises from the right ventricle and the aorta arises from the left ventricle.? A left-sided aortic arch is present.? Findings do not appear changed when compared to the prior CT from 06/15/2014. ? No filling defect is seen within the central pulmonary arteries.? The thoracic aorta is normal in size.? A conventional branching pattern of the head and neck vessels is noted, which are widely patent.? No aortic dissection is seen. ? The abdominal aorta is normal in caliber.? The origins of the celiac trunk, superior mesenteric artery, inferior mesenteric artery, and bilateral renal arteries are patent.? An accessory left renal artery is noted. ? The common, internal, and external iliac arteries are patent.? The bilateral common, superficial, and deep femoral arteries are also patent. ? CHEST:? Lungs and pleura:? No acute airspace opacities.? The left lung is noted at 2 lobes and the right lung is noted at 3 lobes.? No pleural effusions or pneumothorax.? Central and peripheral airways are patent and normal in caliber.? ? Mediastinum:? No mediastinal or hilar adenopathy by size criteria.? Central pulmonary arteries are normal in size.? Esophagus is normal in caliber.? No hiatal hernias.? ? Bones and chest wall:? A cardiac pacemaker is seen with pulse generator in the right chest. No axillary adenopathy by size criteria.? Thyroid appears normal.? No suspicious bony lesions.? No vertebral body compression fractures.? ? ? ABDOMEN:? Solid organs:? A right-sided liver is normal in size and enhancement.? Gallbladder is surgically absent.? Biliary system is non dilated.? Pancreas enhances normally.? A left-sided spleen is normal in size and enhancement.? No adrenal nodules.? Both kidneys are normal in size and enhancement, without hydronephrosis.? 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 A small calcified lesion is seen in the inferior pole of the right kidney that appears stable when compared to the prior exam from 2014. ? Peritoneum and bowel:? No free fluid or air.? Bowel loops are normal in caliber and wall thickness.? Status post appendectomy. ? Nodes and vessels:? No retroperitoneal or mesenteric adenopathy by size criteria.? Inferior vena cava is normal in morphology.? ? Miscellaneous:? No ventral hernias.? ? ? PELVIS:? Genitourinary:? Bladder wall thickness is normal.? Mildly abnormal contour of the uterus is likely a congenital variant. ? Miscellaneous:? No inguinal hernias or adenopathy.? No ventral hernias.? ? Bones:? No suspicious bony lesions.? No vertebral body compression fractures.? ? ? IMPRESSION:? 1. No acute aortic dissection, intramural hematoma, or penetrating atherosclerotic ulcer. 2. Abnormal rightward rotation of the heart appears unchanged when compared to the prior CT from 06/15/2014, with otherwise normal relationship of the atria, ventricles, and great vessels. ? ? Dictated by: Amauri Del Cid M.D. on 03/23/2021 at 0:06 ? ? ECG Data Interpretation: Patient with known dextrocardia Leads were appropriately reversed Sinus rhythm at a rate of 73 No ischemic changes MDM Narrative Medical decision making narrative: 35-year-old woman presents with chest pain abruptly starting at 7:30 p.m. at work. She is given aspirin and nitroglycerin. Feels like the nitroglycerin perhaps influence the pain however returned fairly quickly. Differential is broad given her young age and history of situs inversus. There is no evidence of infection, pneumonia, pneumothorax. No aortic dissection no pulmonary emboli. Additional pain medication is given and Ativan and after both of those she then begins to complain of abdominal pain. Throughout her entire visit, speech is short but not pressured, thought content is appropriate, she clearly states that she is not anxious however demeanor including facial expressions suggests that anxiety is more of a component than she has verbalizing. 2 hour troponin are negative. Chest x-ray is reassuring as is CT angiogram of the chest and abdomen. At this time I do not have a full explanation for the chest and abdominal pain of which she complains however I am not finding life- threatening etiology and I believe that she is safe for home discharge. Discharge Plan Departure Patient Disposition: Home Clinical Impression: Atypical chest pain Instructions: DI for Atypical Chest Pain Activity Restrictions/Additional Instructions: Thank you for coming in today The acute onset of chest pain certainly sounds concerning. With our workup today there is no evidence of infection, heart attack, aortic dissection, blood clots in your lungs, collapsed lungs, abdominal infections or obstruction and your blood work was equally reassuring as well. I am going to suggest to go ahead and go home try to get a good night's sleep and we can re-evaluate tomorrow. If you have new or recurrent symptoms or different findings, please return to the ER and I am happy to re-evaluate. I hope you feel better Prescriptions: No Action metoprolol succinate 50 mg tablet extended release 24 hr 50 mg PO DAILY RF: 0 Referrals: Miscellaneous,DoctorMD [Primary Care Provider] -
[2021-03-22 22:38] LABS: Troponin I < 0.012 ng/mL (0.01-0.034)
[2021-03-22] MEDS: ASPIRIN 81 MG CHEW TAB 324 MG PO (22:39)
[2021-03-22] MEDS: NITROGLYCERIN 0.4 MG SL TAB SL ×2 (22:39→22:45)
[2021-03-22 22:52] LABS: D Dimer 347 ng/mL (<230)
[2021-03-22 22:55] LABS: COVID19 - ADMIT (NP swab/PCR) Negative (Negative)
--- NOTE | 2021-03-22 22:57 | PC.NURSE ---
Pain after 2nd nitro is 08/12, informed
[2021-03-22] MEDS: MORPHINE 2 MG/ML INJ IV (23:06)
[2021-03-22] MEDS: SODIUM CHLORIDE 0.9% 1,000 ML 1000 ML IV (23:07)
--- NOTE | 2021-03-22 23:20 | DI.CT.S_ITS ---
PROCEDURE: CT ANGIO CHEST ABDOMEN PELVIS INDICATIONS: chest pain, situs inversus TECHNIQUE: Precontrast 5 mm thick sections acquired from the lung apices to the iliac crests. After the administration of intravenous contrast, 2.5 mm thick sections again acquired from the lung apices to the iliac crests. Maximum intensity projection (MIP) oblique sagittal and coronal reformats were then acquired. For radiation dose reduction, the following was used: automated exposure control. COMPARISON: [facility], CT, CHEST/ABD W/CON (PNL), 06/15/2014, 13:20. [facility], CT, ABD/PELVIS W/CON (PNL), 09/08/2014, 16:12. FINDINGS: Image quality: Excellent. VASCULATURE: The heart is located in the right chest with ventricular apex directed right anterolaterally. However, the relationship of the right and left atria and ventricles and the pulmonary outflow tracts demonstrate normal relationships, with the systemic blood supply returning to the right atrium and the pulmonary veins draining to the left atrium. The pulmonary trunk arises from the right ventricle and the aorta arises from the left ventricle. A left-sided aortic arch is present. Findings do not appear changed when compared to the prior CT from 06/15/2014. No filling defect is seen within the central pulmonary arteries. The thoracic aorta is normal in size. A conventional branching pattern of the head and neck vessels is noted, which are widely patent. No aortic dissection is seen. The abdominal aorta is normal in caliber. The origins of the celiac trunk, superior mesenteric artery, inferior mesenteric artery, and bilateral renal arteries are patent. An accessory left renal artery is noted. The common, internal, and external iliac arteries are patent. The bilateral common, superficial, and deep femoral arteries are also patent. CHEST: Lungs and pleura: No acute airspace opacities. The left lung is noted at 2 lobes and the right lung is noted at 3 lobes. No pleural effusions or pneumothorax. Central and peripheral airways are patent and normal in caliber. Mediastinum: No mediastinal or hilar adenopathy by size criteria. Central pulmonary arteries are normal in size. Esophagus is normal in caliber. No hiatal hernias. Bones and chest wall: A cardiac pacemaker is seen with pulse generator in the right chest. No axillary adenopathy by size criteria. Thyroid appears normal. No suspicious bony lesions. No vertebral body compression fractures. ABDOMEN: Solid organs: A right-sided liver is normal in size and enhancement. Gallbladder is surgically absent. Biliary system is non dilated. Pancreas enhances normally. A left-sided spleen is normal in size and enhancement. No adrenal nodules. Both kidneys are normal in size and enhancement, without hydronephrosis. 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 A small calcified lesion is seen in the inferior pole of the right kidney that appears stable when compared to the prior exam from 2014. Peritoneum and bowel: No free fluid or air. Bowel loops are normal in caliber and wall thickness. Status post appendectomy. Nodes and vessels: No retroperitoneal or mesenteric adenopathy by size criteria. Inferior vena cava is normal in morphology. Miscellaneous: No ventral hernias. PELVIS: Genitourinary: Bladder wall thickness is normal. Mildly abnormal contour of the uterus is likely a congenital variant. Miscellaneous: No inguinal hernias or adenopathy. No ventral hernias. Bones: No suspicious bony lesions. No vertebral body compression fractures. IMPRESSION: 1. No acute aortic dissection, intramural hematoma, or penetrating atherosclerotic ulcer. 2. Abnormal rightward rotation of the heart appears unchanged when compared to the prior CT from 06/15/2014, with otherwise normal relationship of the atria, ventricles, and great vessels. Dictated by: Amauri Del Cid M.D. on 03/23/2021 at 0:06 Approved by: Amauri Del Cid M.D. on 03/23/2021 at 0:24
[2021-03-23] VITALS: PULSE 60; RESP 22; O2SAT 100
[2021-03-23 00:17] VITALS: BP 116/61; PULSE 59; RESP 16; O2SAT 100
[2021-03-23 00:30] VITALS: BP 133/78; PULSE 84; O2SAT 99
[2021-03-23] MEDS: LORazepam 2 MG/ML INJ 1 MG IV (00:42)
[2021-03-23] MEDS: KETOROLAC 30 MG/ML VIAL 15 MG IV (00:47)
[2021-03-23 01:00] VITALS: BP 113/59; PULSE 60; RESP 18; O2SAT 96
[2021-03-23 01:21] LABS: Troponin I < 0.012 ng/mL (0.01-0.034)
[2021-03-23 01:30] VITALS: BP 121/60; PULSE 60; RESP 17; O2SAT 97
[2021-03-23 02:00] VITALS: BP 117/65; PULSE 60; RESP 16; O2SAT 97
== END 2021-03-23 02:14 | disposition home or self-care (01) ==
PROVIDERS: Emergency Provider Emergency Medicine
DX: R07.89 Other chest pain (principal); Q24.0 Dextrocardia; Z20.822 Contact with and (suspected) exposure to COVID-19; Z95.0 Presence of cardiac pacemaker
CPT/HCPCS: 36415; 71045; 71275; 74174; 80053; 81003; 81025; 82550; 83690; 84484; 85025; 85379; 87635; 93005; 93010; 96361; 96374; 96375; 99284; C9803; J1885; J2060; J2270; Q9967

== ENCOUNTER 2021-07-07 21:01 | Emergency (ER) | payer OTHER, MEDICAID, SELFPAY ==
[2019-12-16 12:54] VITALS: BMI 44.0
[2021-07-07] VITALS (8 sets, daily range): BP systolic 114–140; BP diastolic 65–87; PULSE 61–79; RESP 14–23; TEMP 36.7; O2SAT 97–100
--- NOTE | 2021-07-07 21:14 | DI.RAD.S_ITS ---
PROCEDURE: XR CHEST 1V INDICATIONS: chest pain TECHNIQUE: One view of the chest was acquired. COMPARISON: [facility], CR, XR CHEST 1V, 03/22/2021, 22:02. FINDINGS: Surgical changes and devices: Pacemaker. Lungs and pleura: Lungs are clear. No pleural effusions or pneumothorax. Mediastinum: Mediastinal contours appear normal. Heart size is mildly enlarged. Dextrocardia is present. Bones and chest wall: No suspicious bony lesions. Overlying soft tissues appear unremarkable. IMPRESSION: Lungs are clear. Dictated by: Bekah Sanchez M.D. on 07/07/2021 at 22:17 Approved by: Bekah Sanchez M.D. on 07/07/2021 at 22:20
--- NOTE | 2021-07-07 21:14 | ED.CHESTPAIN ---
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 She states that at times it feels achy and pressure-like and other times it is sharp and stabbing. She did have an episode where when into her right arm. She denies any exertional symptoms but does state that on occasion with deep breath or motion the sharp pain is made worse. She denies any shortness of breath. She has had no fever or chills. She denies runny nose or sore throat nor cough. She has had some episodes of dizziness that do not necessarily correlate with her pain. She has had no nausea or vomiting. She denies any urinary complaints such as dysuria, frequency or urgency. She has had no recent trauma or injury, history of blood clot, cancer or recent travel. Related Data Home Medications Medication Instructions Recorded Confirmed metoprolol succinate 50 mg 50 mg PO DAILY 03/22/21 03/22/21 tablet,extended release 24 hr Allergies Allergy/AdvReac Type Severity Reaction Status Date / Time Benzodiazepines Allergy Unknown Verified 10/09/20 16:07 [BENZODIAZEPINES] Review of Systems Review of Systems Narrative: GENERAL: Denies chills, fatigue, malaise, fever, sweats. HEENT: Denies sinus pain, ear pain, sore throat, difficulty swallowing, dizziness. RESPIRATORY: See HPI CARDIOVASCULAR: See HPI GASTROINTESTINAL: Denies nausea, vomiting, abdominal pain, diarrhea, constipation, melena. : Denies dysuria, frequency, incontinence, hematuria, urinary retention. MUSCULOSKELETAL: denies weakness, joint pain, or bony pain SKIN: Denies rash, skin lesions, or other NEUROLOGIC: Denies weakness, headache, numbness, change in speech, confusion, seizures, incoordination. PSYCHIATRIC: No concerning psychosocial issues. 12 point review of systems is negative except for those stated above Patient History Medical History (Updated 07/08/21 @ 01:56 by Anthony Hall DO) Anemia Bipolar disorder Cardiac arrhythmia Carpal tunnel syndrome (~2011) Dextrocardia Near syncope Psoriasis (~2004) SVT (supraventricular tachycardia) Surgical History Anesthesia History of appendectomy (~2014) History of cholecystectomy (~2011) History of tubal ligation (~2014) Pacemaker (~2014) Vaginal delivery Family History Brother Mental health problem Social History household members: spouse and children Smoking Status: Former smoker alcohol intake: current Smoking Status: Former smoker alcohol intake frequency: a few times a week Substance Use Type: does not use Exam Narrative Exam Narrative: GENERAL: [35 year old patient appears stated age. Well-developed patient, in mild distress. HEAD: Atraumatic. Normocephalic. EYES: Pupils equal round and reactive. Extraocular motions intact. No scleral icterus. No injection or drainage. ENT: Nose without bleeding, purulent drainage. Throat without erythema, tonsillar hypertrophy or exudate. Airway patent. NECK: Trachea midline. Non tender CARDIOVASCULAR: Regular rate and rhythm without murmurs, gallops, or rubs. RESPIRATORY: Clear to auscultation. Breath sounds equal bilaterally. No wheezes, rales, or rhonchi. GASTROINTESTINAL: Abdomen soft, non-tender, nondistended. EXTREMITIES: No edema or joint tenderness. BACK: Nontender without deformity or crepitance. No flank tenderness. NEURO: AOx3. SKIN: No rash or erythema of visible areas Initial Vital Signs Initial Vital Signs: Vital Signs Temperature 98.1 F 07/07/21 21:14 Pulse Rate 61 07/07/21 21:14 Respiratory Rate 20 07/07/21 21:14 Blood Pressure 140/76 07/07/21 21:14 Pulse Oximetry 97 07/07/21 21:14 Scores PERC Score Age greater than or equal to 50 years: No Heart rate greater than or equal to 100 bpm: No Room Air O2 Sat less than 95%: No Unilateral leg swelling: No Recent trauma or surgery: No Hemoptysis: No Prior PE or DVT: No Hormone Use: No Total PERC Score: 0 Wells' Criteria for PE Clinical signs and symptoms of DVT: No PE is #1 Dx or equally likely: No Heart rate > 100: No Immobilization at least 3 days or surg in previous 4 weeks: No History of PE or DVT: No Hemoptysis: No Malignancy w/Treatment within 6 months or palliative: No Wells' PE Score total: 0 Course Course Course Narrative: Patient with relatively nonspecific symptoms on and off for least the past few days, perhaps longer. No significant findings on labs, they are quite reassuring. EKGs are nonischemic and pacemaker is capturing when needed. Pacer has been interrogated and is functioning properly per the pre sales technical consultant. D-dimer is slightly elevated, CT angiogram ordered and finds no specific abnormalities. Patient is hemodynamically stable and in no distress. Return precautions discussed and questions answered to her apparent satisfaction Orders Ordered: ED Orders 07/07/21 21:05 EKG-12 Lead Stat 07/07/21 21:14 XR chest 1V Stat 07/07/21 21:15 Complete Blood Count AUTO DIFF Stat Comprehensive Metabolic Panel Stat Lipase Stat Troponin & CK Cardiac Panel Stat 07/07/21 21:56 EKG-12 Lead Stat 07/08/21 00:03 EKG-12 Lead Stat 07/08/21 00:09 CRP [C-Reactive Protein Quant] Stat Troponin & CK Cardiac Panel Stat 07/08/21 00:33 D Dimer Stat ESR [Erythrocyte Sedimentation Rate] Stat 07/08/21 00:55 CT angio chest PE protocol Stat Sodium Chloride (Normal Saline 0.9%) 1,000 mls @ 150 mls/hr IV CONT PETE Last Admin: 07/07/21 21:27 Dose: 150 mls/hr Documented by: WAYNE Discontinued Medications Acetaminophen (Acetaminophen 325 Mg Tablet) 975 mg PO NOW ONE Stop: 07/08/21 01:56 Last Admin: 07/08/21 02:00 Dose: 975 mg Documented by: TYRONE Ketorolac Tromethamine (Ketorolac 30 Mg/Ml Vial) 15 mg IV NOW ONE Stop: 07/07/21 22:05 Last Admin: 07/07/21 22:10 Dose: 15 mg Documented by: WAYNE Vital Signs Vital signs: Vital Signs - 8 hr 07/07/21 21:14 07/07/21 21:27 07/07/21 21:28 Temperature 98.1 F Pulse Rate 61 67 65 Respiratory Rate 20 14 17 Blood Pressure 140/76 132/75 Pulse Oximetry 97 100 100 07/07/21 21:30 07/07/21 22:00 07/07/21 22:30 Temperature Pulse Rate 66 79 67 Respiratory Rate 15 23 Blood Pressure 128/78 138/87 114/66 Pulse Oximetry 100 100 99 07/07/21 23:00 07/07/21 23:30 07/08/21 00:00 Temperature Pulse Rate 63 63 74 Respiratory Rate 18 18 16 Blood Pressure 114/71 116/65 111/68 Pulse Oximetry 99 99 99 07/08/21 00:30 07/08/21 01:00 07/08/21 01:20 Temperature Pulse Rate 61 65 64 Respiratory Rate 15 25 H 21 Blood Pressure 119/70 122/68 131/75 Pulse Oximetry 100 100 100 07/08/21 01:30 07/08/21 02:00 07/08/21 02:01 Temperature Pulse Rate 60 66 63 Respiratory Rate 16 18 16 Blood Pressure 116/67 107/55 L Pulse Oximetry 100 99 100 07/08/21 02:42 Temperature 98 F Pulse Rate 68 Respiratory Rate 18 Blood Pressure 106/66 Pulse Oximetry 98 MDM - Chest Pain Lab Data Result diagrams: 07/07/21 21:15 07/07/21 21:15 Labs: Lab Results 07/07/21 07/07/21 07/07/21 Range/Units 21:15 21:15 21:15 WBC 10.5 (4.5-11.0) X10^3/uL RBC 3.88 L (4.0-5.2) X10^6/uL Hgb 12.1 (12.0-16.0) g/dL Hct 35.6 L (36-46) % MCV 91.9 (80-100) fL MCH 31.3 (26-34) PG MCHC 34.0 (30-36) % RDW 13.6 (11.6-14.8) % Plt Count 392 (150-400) X10^3/uL Neut % (Auto) 65.8 (50-75) % Lymph % (Auto) 23.9 L (25-40) % [facility] % (Auto) 8.3 (3-14) % Eos % (Auto) 1.3 L (2-4) % Baso % (Auto) 0.7 (0-2) % Neut # (Auto) 6900 (0714-4516) /uL Lymph # (Auto) 2500 (0297-5528) /uL [facility] # (Auto) 900 (0-900) /uL Eos # (Auto) 100 (0-450) /uL Baso # (Auto) 100 (0-100) /uL ESR 9 (0-20) MM/HR D-Dimer (<230) ng/mL Sodium 139 (137-145) mmol/L Potassium 3.7 (3.4-5.1) mmol/L Chloride 106 (98-107) mmol/L Carbon Dioxide 30 (22-32) mmol/L BUN 11 (7-17) mg/dL Creatinine 0.72 (0.52-1.04) mg/dL Estimated GFR > 60.0 (>60) mL/min BUN/Creatinine Ratio 15.3 (6-22) Glucose 103 H (70-100) mg/dL Calcium 9.8 (8.4-10.2) mg/dL Total Bilirubin 0.4 (0.2-1.3) mg/dL AST 21 (14-36) IU/L ALT 21 (<35) IU/L Alkaline Phosphatase 54 (38-126) U/L Total Creatine Kinase 38 (30-135) U/L CK-MB (CK-2) TNP CK-MB (CK-2) Rel Index TNP Troponin I < 0.012 (0.01-0.034) ng/mL C-Reactive Protein (<1.0) mg/dL Total Protein 8.0 (6.3-8.2) g/dL Albumin 4.6 (3.5-5.0) g/dL Globulin 3.4 (1.7-4.1) g/dL Albumin/Globulin Ratio 1.4 (1.0-2.8) Lipase 70 (23-300) U/L 07/07/21 07/08/21 07/08/21 Range/Units 21:15 00:09 00:09 WBC (4.5-11.0) X10^3/uL RBC (4.0-5.2) X10^6/uL Hgb (12.0-16.0) g/dL Hct (36-46) % MCV (80-100) fL MCH (26-34) PG MCHC (30-36) % RDW (11.6-14.8) % Plt Count (150-400) X10^3/uL Neut % (Auto) (50-75) % Lymph % (Auto) (25-40) % [facility] % (Auto) (3-14) % Eos % (Auto) (2-4) % Baso % (Auto) (0-2) % Neut # (Auto) (6894-9861) /uL Lymph # (Auto) (1071-1733) /uL [facility] # (Auto) (0-900) /uL Eos # (Auto) (0-450) /uL Baso # (Auto) (0-100) /uL ESR (0-20) MM/HR D-Dimer 271 H (<230) ng/mL Sodium (137-145) mmol/L Potassium (3.4-5.1) mmol/L Chloride (98-107) mmol/L Carbon Dioxide (22-32) mmol/L BUN (7-17) mg/dL Creatinine (0.52-1.04) mg/dL Estimated GFR (>60) mL/min BUN/Creatinine Ratio (6-22) Glucose (70-100) mg/dL Calcium (8.4-10.2) mg/dL Total Bilirubin (0.2-1.3) mg/dL AST (14-36) IU/L ALT (<35) IU/L Alkaline Phosphatase (38-126) U/L Total Creatine Kinase 39 (30-135) U/L CK-MB (CK-2) TNP CK-MB (CK-2) Rel Index TNP Troponin I < 0.012 (0.01-0.034) ng/mL C-Reactive Protein < 0.5 (<1.0) mg/dL Total Protein (6.3-8.2) g/dL Albumin (3.5-5.0) g/dL Globulin (1.7-4.1) g/dL Albumin/Globulin Ratio (1.0-2.8) Lipase (23-300) U/L Imaging Data Chest x-ray: Radiologist's Impression: [address] [address] XRay Report Signed Patient: Silvina Kelly MR#: [id number] : 1985 Acct:[id number] Age/Sex: 35 / F Date of Service: 07/07/21 Loc: ED Accession Number: [id number] ?? Procedure: XR chest 1V Ordering Provider: Anthony Hall D.O. PROCEDURE:? XR CHEST 1V ? INDICATIONS:? chest pain ? TECHNIQUE:? One view of the chest was acquired.? ? COMPARISON:? [facility], CR, XR CHEST 1V, 03/22/2021, 22:02. ? FINDINGS:? ? Surgical changes and devices:? Pacemaker.? ? Lungs and pleura:? Lungs are clear.? No pleural effusions or pneumothorax.? ? Mediastinum:? Mediastinal contours appear normal.? Heart size is mildly enlarged.? Dextrocardia is present. ? Bones and chest wall:? No suspicious bony lesions.? Overlying soft tissues appear unremarkable.? ? IMPRESSION:? Lungs are clear. ? ? Dictated by: Bekah Sanchez M.D. on 07/07/2021 at 22:17 ? ? Approved by: Bekah Sanchez M.D. on 07/07/2021 at 22:20 ? MDM Narrative Medical decision making narrative: Chart Viewer Diagnostics Subcategory All Activity ??:?? All Time ??:?? All Subcategories Filter Laboratory Imaging Microbiology Pathology Blood Bank Tests Cardiovascular Other Specialty DATE TYPE STATUS REF RANGE/AUTHOR Hx Today 00:55 Chest CTA Signed Bekah Sanchez 07/07/21 21:14 Chest X-Ray Signed Bekah Sanchez 03/22/21 23:20 Chest/Abdomen/Pelvis CTA Signed Amauri Del Cid 03/22/21 21:57 Chest X-Ray Signed Amauri Del Cid 07/18/19 13:11 Outside EKG ? Silvina Kelly ED 35, F?1985 MRN#? [id number] REG ER,?Main ED??R02?? 90.718kg ? Chest Pain Acc#? [id number] Resus Status Not Ordered Hx Avail Special Indicators No Data to Display Home Meds Not Confirmed Prescription Monitoring Program MEDICATIONS (INSTRUCTIONS) LAST TAKEN Active ??metoprolol succinate ??50 mgPODAILY Allergies Benzodiazepines (BENZODIAZEPINES) Problems ? ONSET Atypical chest pain Migraine headache with aura Prolapse of female pelvic organs Psoriasis ~2004 Carpal tunnel syndrome ~2011 Anemia Cardiac arrhythmia Vital Signs Today 02:42 BP 106/66? Pulse 68? Resp 18? Temp 98 F? O2 Sat 98? Delivery Room Air? Diagnostics Reports Silvina Kelly??35??F??1985 ? Allergy/Adv: Benzodiazepines Close Chest CTA (Signed) Bekah Sanchez - 07/08/21 Chest X-Ray (Signed) Bekah Sanchez - 07/07/21 Chest/Abdomen/Pelvis CTA (Signed) Amauri Del Cid - 03/22/21 Chest X-Ray (Signed) Maria EugeniaAmauri - 03/22/21 Outside EKG 07/18/19 Launch?Image [address] [address] [address] Scan Report Signed Patient: Silvina Kelly MR#: [id number] : 1985 Acct:[id number] Age/Sex: 35 / F Date of Service: 07/08/21 Loc: ED Accession Number: [id number] ?? Procedure: CT angio chest PE protocol Ordering Provider: Anthony Hall D.O. PROCEDURE:? CT ANGIO CHEST PE PROTOCOL ? INDICATIONS:? pleuritic chest pain, Shortness of breath, elevated Dimer ? TECHNIQUE:? After the administration of intravenous contrast, 2 mm thick sections acquired from the pulmonary apices to the posterior costophrenic angles.? 3-dimensional maximum intensity projection (MIP) coronal and sagittal reformats were then acquired through the thorax.? For radiation dose reduction, the following was used:? automated exposure control, adjustment of mA and/or kV according to patient size.? ? COMPARISON:? [facility], CT, CT ANGIO CHEST ABDOMEN PELVIS, 03/22/2021, 23:28. ? FINDINGS:? Image quality:? Excellent.? ? Pulmonary arteries:? Pulmonary arteries are normal in size, and demonstrate no intraluminal filling defects to suggest central pulmonary embolism.? ? Lungs and pleura:? Lungs are clear.? No pleural effusions or pneumothorax.? Central and peripheral airways are patent.? ? Mediastinum:? Heart size is normal, without pericardial effusion.? The heart is located in the anterior right chest within tracheal a apex directed anterior laterally.? Left-sided aortic arch is present.? Pulmonary trunk arises from the right ventricle and aorta from the left ventricle.? No mediastinal or hilar adenopathy.? Thoracic aorta is normal in caliber and enhancement.? Esophagus is normal in caliber, without hiatal hernia.? ? Bones and chest wall:? No suspicious bony lesions.? Ribs and thoracic spine appear intact throughout.? Thyroid gland is unremarkable.? No axillary or supraclavicular adenopathy.? ? Abdomen:? Visualized upper abdominal solid organs appear normal in the early arterial phase of enhancement.? ? IMPRESSION:? ? Lungs are clear. ? No pulmonary embolism. ? ? Dictated by: Bekah Sanchez M.D. on 07/08/2021 at 1:27 ? ? Approved by: Bekah Sanchez M.D. on 07/08/2021 at 1:30 ? Discharge Plan Departure Patient Disposition: Home Clinical Impression: Atypical chest pain Instructions: DI for Atypical Chest Pain Activity Restrictions/Additional Instructions: *You have been diagnosed with [atypical chest pain. Your history and physical exam as well as labs, multiple EKGs and imaging including a CT scan are very reassuring and there is no evidence of heart attack, blood clot, pericarditis or other severe or life-threatening diagnosis which would require a specific or immediate intervention *What to do: *Please continue to take your regular medications as directed. [ ] New medication prescriptions sent to your pharmacy: [ ] [ ] New medication written as a paper prescription [ x] No new medications given *Please follow up with your primary care provider in 2-3 days, call for an appointment. Let them know you were seen in the Emergency Department and that we ask that you be seen in follow up. We will electronically transmit a record of today's note if your PCP is in our system *If you do not have a primary care provider please contact the [facility] Resource line at [phone]. They will ask some questions about your medical history and help get you set up with a doctor in the community. *Return to Emergency Department if you should have any new, worsening or concerning symptoms, such as [fever greater than 101 F, shaking chills, worsening pain, persistent vomiting or other bothersome symptoms] Prescriptions: No Action metoprolol succinate 50 mg tablet extended release 24 hr 50 mg PO DAILY 0RF
[2021-07-07 21:24] LABS: Add Manual Diff / Slide Review NO; Basophils Absolute Auto 100 /uL (0-100); Basophils Percent Auto 0.7 % (0-2); Eosinophils Absolute Auto 100 /uL (0-450); Eosinophils Percent Auto 1.3 % (2-4); Hematocrit 35.6 % (36-46); Hemoglobin 12.1 g/dL (12.0-16.0); Lymphocytes Absolute Auto 2500 /uL (1100-4500); Lymphocytes Percent Auto 23.9 % (25-40); Mean Corpuscular Hemoglobin 31.3 PG (26-34); Mean Corpuscular Volume 91.9 fL (80-100); Monocytes Absolute Auto 900 /uL (0-900); Monocytes Percent Auto 8.3 % (3-14); Neutrophils Absolute Auto 6900 /uL (1500-7000); Neutrophils Percent Auto 65.8 % (50-75); Platelet Count 392 X10^3/uL (150-400); Red Blood Cell Count 3.88 X10^6/uL (4.0-5.2); Red Cell Distribution Width 13.6 % (11.6-14.8); White Blood Cell Count 10.5 X10^3/uL (4.5-11.0)
[2021-07-07] MEDS: SODIUM CHLORIDE 0.9% 1,000 ML 150 ML IV (21:27)
[2021-07-07 21:34] LABS: Alanine Aminotransferase 21 IU/L (<35); Albumin 4.6 g/dL (3.5-5.0); Albumin Globulin Ratio 1.4 (1.0-2.8); Alkaline Phosphatase 54 U/L (38-126); Aspartate Aminotransferase 21 IU/L (14-36); BUN Creatinine Ratio 15.3 (6-22); Bilirubin Total 0.4 mg/dL (0.2-1.3); Blood Urea Nitrogen 11 mg/dL (7-17); Calcium 9.8 mg/dL (8.4-10.2); Carbon Dioxide 30 mmol/L (22-32); Chloride 106 mmol/L (98-107); Creatine Kinase 38 U/L (30-135); Estimated Glomerular Filt Rate > 60.0 mL/min (>60); Globulin 3.4 g/dL (1.7-4.1); Glucose 103 mg/dL (70-100); HEMOLYSIS < 15 (0-50); Lipase 70 U/L (23-300); Potassium 3.7 mmol/L (3.4-5.1); Sodium 139 mmol/L (137-145)
[2021-07-07 21:46] LABS: Troponin I < 0.012 ng/mL (0.01-0.034)
[2021-07-07] MEDS: KETOROLAC 30 MG/ML VIAL 15 MG IV (22:10)
[2021-07-08] VITALS (8 sets, daily range): BP systolic 106–131; BP diastolic 55–75; PULSE 60–74; RESP 15–25; TEMP 36.6; O2SAT 98–100
[2021-07-08 00:22] LABS: Creatine Kinase 39 U/L (30-135)
[2021-07-08 00:35] LABS: Troponin I < 0.012 ng/mL (0.01-0.034)
[2021-07-08 00:47] LABS: D Dimer 271 ng/mL (<230)
[2021-07-08 00:54] LABS: C-Reactive Protein Quant < 0.5 mg/dL (<1.0)
--- NOTE | 2021-07-08 00:55 | DI.CT.S_ITS ---
PROCEDURE: CT ANGIO CHEST PE PROTOCOL INDICATIONS: pleuritic chest pain, Shortness of breath, elevated Dimer TECHNIQUE: After the administration of intravenous contrast, 2 mm thick sections acquired from the pulmonary apices to the posterior costophrenic angles. 3-dimensional maximum intensity projection (MIP) coronal and sagittal reformats were then acquired through the thorax. For radiation dose reduction, the following was used: automated exposure control, adjustment of mA and/or kV according to patient size. COMPARISON: [facility], CT, CT ANGIO CHEST ABDOMEN PELVIS, 03/22/2021, 23:28. FINDINGS: Image quality: Excellent. Pulmonary arteries: Pulmonary arteries are normal in size, and demonstrate no intraluminal filling defects to suggest central pulmonary embolism. Lungs and pleura: Lungs are clear. No pleural effusions or pneumothorax. Central and peripheral airways are patent. Mediastinum: Heart size is normal, without pericardial effusion. The heart is located in the anterior right chest within tracheal a apex directed anterior laterally. Left-sided aortic arch is present. Pulmonary trunk arises from the right ventricle and aorta from the left ventricle. No mediastinal or hilar adenopathy. Thoracic aorta is normal in caliber and enhancement. Esophagus is normal in caliber, without hiatal hernia. Bones and chest wall: No suspicious bony lesions. Ribs and thoracic spine appear intact throughout. Thyroid gland is unremarkable. No axillary or supraclavicular adenopathy. Abdomen: Visualized upper abdominal solid organs appear normal in the early arterial phase of enhancement. IMPRESSION: Lungs are clear. No pulmonary embolism. Dictated by: Bekah Sanchez M.D. on 07/08/2021 at 1:27 Approved by: Bekah Sanchez M.D. on 07/08/2021 at 1:30
[2021-07-08 01:13] LABS: Erythrocyte Sedimentation Rate 9 MM/HR (0-20)
[2021-07-08] MEDS: ACETAMINOPHEN 325 MG TABLET 975 MG PO (02:00)
== END 2021-07-08 03:08 | disposition home or self-care (01) ==
PROVIDERS: Emergency Provider Emergency Medicine
DX: R07.89 Other chest pain (principal); Z95.0 Presence of cardiac pacemaker; Z87.891 Personal history of nicotine dependence
CPT/HCPCS: 36415; 71045; 71275; 80053; 82550; 83690; 84484; 85025; 85379; 85651; 86140; 93005; 96374; 99284; J1885; Q9967

== ENCOUNTER 2021-09-02 20:52 | Emergency (ER) | payer OTHER, MEDICAID, SELFPAY ==
[2019-12-16 12:54] VITALS: BMI 44.0
[2021-09-02 21:00] VITALS: BP 130/76; PULSE 69; RESP 16; TEMP 36.9; O2SAT 98; BMI 41.5
[2021-09-02 21:53] LABS: COVID19 -Nasal RAPID Negative (Negative)
--- NOTE | 2021-09-02 22:39 | ED_ITS ---
HPI - General Adult General Chief complaint: Upper Respiratory Symptoms Stated complaint: wants throat swabbed for strep Time Seen by Provider: 09/02/21 22:27 Source: patient Mode of arrival: Ambulatory History of Present Illness HPI narrative: 35-year-old woman with a history of dextrocardia, pacemaker, recurrent episodes of strep throat and she is concerned that she has strep throat again. She and her daughter both have had upper respiratory symptoms for the last 24 hours. She complains of some mild nausea a single episode of vomiting yesterday and sore throat. No fevers, cough no abdominal pain diarrhea or palpitations. Related Data Home Medications Medication Instructions Recorded Confirmed metoprolol succinate 50 mg 50 mg PO DAILY 03/22/21 03/22/21 tablet,extended release 24 hr Allergies Allergy/AdvReac Type Severity Reaction Status Date / Time Benzodiazepines Allergy Unknown Verified 10/09/20 16:07 [BENZODIAZEPINES] Review of Systems Review of Systems Narrative: Remainder of complete review of systems is otherwise unremarkable except for that included in the HPI. Patient History Medical History (Updated 09/02/21 @ 22:42 by Nilda Shay MD) Anemia Bipolar disorder Cardiac arrhythmia Carpal tunnel syndrome (~2011) Dextrocardia Near syncope Psoriasis (~2004) SVT (supraventricular tachycardia) Surgical History Anesthesia History of appendectomy (~2014) History of cholecystectomy (~2011) History of tubal ligation (~2014) Pacemaker (~2014) Vaginal delivery Family History Brother Mental health problem Social History household members: spouse and children Smoking Status: Former smoker alcohol intake: current Smoking Status: Former smoker alcohol intake frequency: a few times a week Substance Use Type: does not use Exam Initial Vital Signs Initial Vital Signs: Vital Signs Temperature 98.5 F 09/02/21 21:00 Pulse Rate 69 09/02/21 21:00 Respiratory Rate 16 09/02/21 21:00 Blood Pressure 130/76 09/02/21 21:00 Pulse Oximetry 98 09/02/21 21:00 General: Alert appropriate in no acute distress HEENT: Unremarkable pharynx, no cervical adenopathy Respiratory: No wheezing or rhonchi, Able to speak in full sentences, no obvious respiratory distress Skin: No obvious rashes, warm and dry Neurologic: Grossly intact no obvious asymmetries or abnormalities Psych: appropriate insight and affect, cooperative Course Orders Ordered: ED Orders 09/02/21 21:28 COVID19 -Nasal swab/Pre-Proc Stat 09/02/21 22:38 Throat Culture Stat Vital Signs Vital signs: Vital Signs - 8 hr 09/02/21 21:00 Temperature 98.5 F Pulse Rate 69 Respiratory Rate 16 Blood Pressure 130/76 Pulse Oximetry 98 Medical Decision Making Lab Data Labs: Lab Results 09/02/21 Range/Units 21:28 SARS-CoV-2 (PCR) Negative (Negative) Point of Care Testing Test Results Negative Rapid Strep A Negative Urine Dip Bedside Urine Glucose Negative Bedside Urine Bilirubin - Negative Bedside Urine Ketone - Negative Urine Specific [place] 1.030 Bedside Urine Occult Blood - Negative Bedside Urine pH 5.5 Bedside Urine Protein - Negative Bedside Urine Urobilinogen - Negative Bedside Urine Nitrite - Negative Bedside Urine Leukocytes - Negative Esterase Point of care testing: Point of Care Testing Test Results Negative Rapid Strep A Negative Urine Dip Bedside Urine Glucose Negative Bedside Urine Bilirubin - Negative Bedside Urine Ketone - Negative Urine Specific [place] 1.030 Bedside Urine Occult Blood - Negative Bedside Urine pH 5.5 Bedside Urine Protein - Negative Bedside Urine Urobilinogen - Negative Bedside Urine Nitrite - Negative Bedside Urine Leukocytes - Negative Esterase MDM Narrative Medical decision making narrative: 35-year-old woman concerned that she has strep throat. She states that she is not nauseated enough that she feels she needs any Zofran at this time. Rapid strep and COVID tests were negative. A throat culture is done and she will be contacted if it is positive with appropriate antibiotics to be ordered at that time. There is no evidence of sepsis or worsen infection at this time and she is safe for home discharge Discharge Plan Departure Patient Disposition: Home Clinical Impression: Acute viral pharyngitis Instructions: DI for Viral Pharyngitis Activity Restrictions/Additional Instructions: Thank you for coming in today Your rapid strep and COVID tests were negative today. We have done a throat culture and if this returns positive we will call you to let you know and arrange for appropriate antibiotics. If you have worsening signs or symptoms please feel free to return to the emergency department Prescriptions: No Action metoprolol succinate 50 mg tablet extended release 24 hr 50 mg PO DAILY 0RF Referrals: Alex Velazco MD [Primary Care Provider] -
== END 2021-09-02 23:07 | disposition home or self-care (01) ==
PROVIDERS: Emergency Provider Emergency Medicine; PCP Family Medicine
DX: J02.9 Acute pharyngitis, unspecified (principal); R11.2 Nausea with vomiting, unspecified; Z20.822 Contact with and (suspected) exposure to COVID-19; Z87.891 Personal history of nicotine dependence
CPT/HCPCS: 81003; 81025; 87070; 87635; 87880; 99282; C9803

== ENCOUNTER 2023-09-19 03:25 | Emergency (ER) | payer OTHER, SELFPAY ==
[2019-12-16 12:54] VITALS: BMI 44.0
[2023-09-19 03:34] VITALS: BP 131/73; PULSE 80; RESP 18; O2SAT 100; BMI 39.4
--- NOTE | 2023-09-19 03:42 | ED.CHESTPAIN ---
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 Patient was lying in bed when chest pain began and has been constant since onset. When the pain did not sepsis she decided to come to the emergency department for evaluation. Denies known history of coronary disease. Followed by Dr. Whitt of [facility] cardiology Related Data Home Medications Medication Instructions Recorded Confirmed metoprolol succinate 50 mg 50 mg PO DAILY 03/22/21 03/22/21 tablet,extended release 24 hr Allergies Allergy/AdvReac Type Severity Reaction Status Date / Time Benzodiazepines Allergy Unknown Verified 10/09/20 16:07 [BENZODIAZEPINES] Review of Systems Review of Systems Narrative: See HPI Patient History Medical History Near syncope Bipolar disorder Dextrocardia SVT (supraventricular tachycardia) Psoriasis (~2004) Carpal tunnel syndrome (~2011) Anemia Cardiac arrhythmia Surgical History Anesthesia History of tubal ligation (~2014) History of cholecystectomy (~2011) History of appendectomy (~2014) Pacemaker (~2014) Vaginal delivery Family History Brother Mental health problem Social History household members: spouse and children Smoking Status: Former smoker alcohol intake: current Smoking Status: Former smoker alcohol intake frequency: a few times a week Substance Use Type: does not use Exam Initial Vital Signs Initial Vital Signs: Vital Signs Pulse Rate 80 09/19/23 03:34 Respiratory Rate 18 09/19/23 03:34 Blood Pressure 131/73 09/19/23 03:34 Pulse Oximetry 100 09/19/23 03:34 Oxygen Delivery Method Room Air 09/19/23 03:34 Const: Awake, alert, no acute distress, nontoxic appearing Cardiac: regular rate, regular rhythm RESP: unlabored, clear bilaterally, no wheezing Skin: Warm, Dry, intact, no rashes Neuro: AO x3, CN II-XII grossly intact, moves all extremities Course Orders Ordered: ED Orders 09/19/23 03:40 BNP [NT-proBNP (BNP-Adult 18+)] Stat CBC Auto Diff [Complete Blood Count AUTO DIFF] Stat CMP [Comprehensive Metabolic Panel] Stat PT [Prothrombin Time INR] Stat Troponin & CK Cardiac Panel Stat 09/19/23 03:43 Chest [XR chest 1V] Stat EKG-12 Lead Stat Discontinued Medications Ketorolac Tromethamine (Ketorolac 30 Mg/Ml Vial) 15 mg IV NOW ONE Stop: 09/19/23 04:37 Last Admin: 09/19/23 04:46 Dose: 15 mg Documented By: AB Vital Signs Vital signs: Vital Signs - 8 hr 09/19/23 03:34 09/19/23 03:43 09/19/23 04:00 Pulse Rate 80 64 60 Respiratory Rate 18 14 17 Blood Pressure 131/73 Pulse Oximetry 100 99 97 Oxygen Delivery Method Room Air Room Air 09/19/23 04:01 09/19/23 04:01 09/19/23 04:30 Pulse Rate 60 60 Respiratory Rate 18 11 L Blood Pressure 111/59 L Pulse Oximetry 97 98 Oxygen Delivery Method Room Air Room Air 09/19/23 04:30 Pulse Rate Respiratory Rate Blood Pressure 116/65 Pulse Oximetry Oxygen Delivery Method MDM - Chest Pain Differential Diagnosis Differential diagnosis: Likely pneumothorax, costochondritis and chest pain Lab Data 09/19/23 03:40 09/19/23 03:40 Labs: Lab Results 09/19/23 Range/Units 03:40 WBC 8.2 (4.5-11.0) X10^3/uL RBC 3.63 L (4.0-5.2) X10^6/uL Hgb 11.5 L (12.0-16.0) g/dL Hct 34.0 L (36-46) % MCV 93.6 (80-100) fL MCH 31.7 (26-34) PG MCHC 33.9 (30-36) % RDW 14.0 (11.6-14.8) % Plt Count 346 (150-400) X10^3/uL Neut % (Auto) 55.1 (50-75) % Lymph % (Auto) 32.9 (25-40) % [place] % (Auto) 9.8 (3-14) % Eos % (Auto) 1.4 L (2-4) % Baso % (Auto) 0.8 (0-2) % Neut # (Auto) 4500 (8140-5204) /uL Lymph # (Auto) 2700 (1956-3436) /uL [place] # (Auto) 800 (0-900) /uL Eos # (Auto) 100 (0-450) /uL Baso # (Auto) 100 (0-100) /uL PT 10.4 (9.4-12.5) SECONDS INR 0.9 (0.9-1.3) Sodium 140 (137-145) mmol/L Potassium 3.6 (3.4-5.1) mmol/L Chloride 109 H (98-107) mmol/L Carbon Dioxide 25 (22-32) mmol/L BUN 12 (7-17) mg/dL Creatinine 0.71 (0.52-1.04) mg/dL Estimated GFR > 60 (>60) mL/min BUN/Creatinine Ratio 16.9 (6-22) Glucose 93 (70-100) mg/dL Calcium 9.4 (8.4-10.2) mg/dL Total Bilirubin 0.4 (0.2-1.3) mg/dL AST 21 (14-36) IU/L ALT 30 (<35) IU/L Alkaline Phosphatase 57 (38-126) U/L Total Creatine Kinase 59 (30-135) U/L Troponin I < 0.012 (0.01-0.034) ng/mL NT-Pro-B Natriuret Pep 32 (<125) pg/mL Total Protein 7.4 (6.3-8.2) g/dL Albumin 4.6 (3.5-5.0) g/dL Globulin 2.8 (1.7-4.1) g/dL Albumin/Globulin Ratio 1.6 (1.0-2.8) ECG Data Interpretation: Normal sinus rhythm at 71 beats per minute. Normal NC, normal axis, no ST T wave changes MDM Narrative Medical decision making narrative: Well-appearing patient with right-sided chest pain. EKG is sinus rhythm without concerning findings. Troponin undetectable, CXR with dextrocardia, PPM in place, however no other acute abnormalities. Heart score is 0 based on patient's age, lack of known cardiac risk factors, undetectable troponin. Patient given Toradol for pain, informed of lab and imaging findings. 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 I do not know the cause of your chest pain but it was not appear to be a heart attack at this time. Please follow up as usual with your fisheries biologist Dr. Whitt Prescriptions: No Action metoprolol succinate 50 mg tablet extended release 24 hr 50 mg PO DAILY Referrals: Miscellaneous,Doctor, MD [Primary Care Provider] - Stand Alone Forms: Patient Portal/API
[2023-09-19 03:43] VITALS: PULSE 64; RESP 14; O2SAT 99
--- NOTE | 2023-09-19 03:43 | DI.RAD.S_ITS ---
PROCEDURE: XR CHEST 1V INDICATIONS: CHEST PAIN TECHNIQUE: One view of the chest was acquired. COMPARISON: [facility], CT, CT ANGIO CHEST ABDOMEN PELVIS, 03/22/2021, 23:28. [facility], CR, XR CHEST 1V, 03/22/2021, 22:02. [facility], CR, XR CHEST 1V, 07/07/2021, 21:18. FINDINGS: Surgical changes and devices: Left-sided cardiac pacemaker is stable. Lungs and pleura: Lungs are clear. No pleural effusions or pneumothorax. Mediastinum: Rightward shift of the mediastinum is unchanged. Cardiac silhouette is unchanged. Bones and chest wall: No suspicious bony lesions. Overlying soft tissues appear unremarkable. IMPRESSION: No acute cardiopulmonary abnormality is seen. Dictated by: Kallie Harrison M.D. on 09/19/2023 at 8:19 Approved by: Kallie Harrison M.D. on 09/19/2023 at 8:22
[2023-09-19 03:50] LABS: Add Manual Diff / Slide Review NO; Basophils Absolute Auto 100 /uL (0-100); Basophils Percent Auto 0.8 % (0-2); Eosinophils Absolute Auto 100 /uL (0-450); Eosinophils Percent Auto 1.4 % (2-4); Hemoglobin 11.5 g/dL (12.0-16.0); Lymphocytes Absolute Auto 2700 /uL (1100-4500); Lymphocytes Percent Auto 32.9 % (25-40); Mean Corpuscular HGB Conc 33.9 % (30-36); Mean Corpuscular Hemoglobin 31.7 PG (26-34); Mean Corpuscular Volume 93.6 fL (80-100); Monocytes Absolute Auto 800 /uL (0-900); Monocytes Percent Auto 9.8 % (3-14); Neutrophils Absolute Auto 4500 /uL (1500-7000); Neutrophils Percent Auto 55.1 % (50-75); Platelet Count 346 X10^3/uL (150-400); Red Blood Cell Count 3.63 X10^6/uL (4.0-5.2); White Blood Cell Count 8.2 X10^3/uL (4.5-11.0)
[2023-09-19 04:00] VITALS: PULSE 60; RESP 17; O2SAT 97
[2023-09-19 04:01] VITALS: BP 111/59; PULSE 60; RESP 18; O2SAT 97
[2023-09-19 04:05] LABS: INR 0.9 (0.9-1.3); Prothrombin Time 10.4 SECONDS (9.4-12.5)
[2023-09-19 04:10] LABS: Alanine Aminotransferase 30 IU/L (<35); Albumin 4.6 g/dL (3.5-5.0); Albumin Globulin Ratio 1.6 (1.0-2.8); Alkaline Phosphatase 57 U/L (38-126); Aspartate Aminotransferase 21 IU/L (14-36); BUN Creatinine Ratio 16.9 (6-22); Bilirubin Total 0.4 mg/dL (0.2-1.3); Blood Urea Nitrogen 12 mg/dL (7-17); Calcium 9.4 mg/dL (8.4-10.2); Carbon Dioxide 25 mmol/L (22-32); Chloride 109 mmol/L (98-107); Creatine Kinase 59 U/L (30-135); Estimated Glomerular Filt Rate > 60 mL/min (>60); Globulin 2.8 g/dL (1.7-4.1); Glucose 93 mg/dL (70-100); HEMOLYSIS < 15 (0-50); Potassium 3.6 mmol/L (3.4-5.1); Sodium 140 mmol/L (137-145); Total Protein 7.4 g/dL (6.3-8.2)
[2023-09-19 04:22] LABS: NT-proBNP (BNP-Adult 18+) 32 pg/mL (<125); Troponin I < 0.012 ng/mL (0.01-0.034)
--- NOTE | 2023-09-19 04:26 | PC.NURSE ---
Pacemaker interrogated.
[2023-09-19 04:30] VITALS: BP 116/65; PULSE 60; RESP 11; O2SAT 98
[2023-09-19] MEDS: KETOROLAC 30 MG/ML VIAL 15 MG IV (04:46)
== END 2023-09-19 04:58 | disposition home or self-care (01) ==
PROVIDERS: Emergency Provider Emergency Medicine
DX: R07.9 Chest pain, unspecified (principal)
CPT/HCPCS: 36415; 71045; 80053; 82550; 83880; 84484; 85025; 85610; 93005; 96374; 99284; J1885

== ENCOUNTER → 2023-11-16 10:02 | Outpatient (CLI) | payer OTHER, SELFPAY ==
[2019-12-16 12:54] VITALS: BMI 44.0
--- NOTE | 2023-11-16 10:27 | DI.RAD.S_ITS ---
PROCEDURE: XR CHEST 2V INDICATIONS: Cough TECHNIQUE: 2 views of the chest were acquired. COMPARISON: [facility], CR, XR CHEST 1V, 09/19/2023, 4:05. FINDINGS: Surgical changes and devices: Dual lead cardiac pacer is unchanged. Lungs and pleura: Lungs are clear. No pleural effusions or pneumothorax. Mediastinum: Mediastinal contours are normal. Heart size is normal. Cardiac silhouette is unchanged. Bones and chest wall: No suspicious bony abnormalities. Soft tissues appear unremarkable. IMPRESSION: No acute cardiopulmonary abnormality is seen. Dictated by: Kallie Harrison M.D. on 11/16/2023 at 14:23 Approved by: Kallie Harrison M.D. on 11/16/2023 at 14:24
== END ==
PROVIDERS: Referring Provider Nurse Practitioner Family; Visit Provider Nurse Practitioner Family
DX: J02.9 Acute pharyngitis, unspecified (principal); R05.9 Cough, unspecified
CPT/HCPCS: 71046; 87070; 87077; 87147